=== PATIENT | male | born 1995 | race Caucasian/White ===

== ENCOUNTER 2020-05-12 17:59 | Emergency (ER) | payer MEDICAID, OTHER ==
[~2020-05-12] VITALS: Ht 175.3 cm; Wt 91.4 kg
[2020-05-12 18:14] VITALS: BP 106/62
== END 2020-05-12 19:21 | disposition home or self-care (01) ==
LOC: ED 19:15
DX: B35.3 Tinea pedis (principal); F17.200 Nicotine dependence, unspecified, uncomplicated
CPT/HCPCS: 99283

== ENCOUNTER 2020-05-18 20:08 | Emergency (ER) | payer SELFPAY ==
[~2020-05-18] VITALS: Ht 175.3 cm; Wt 94.8 kg
[2020-05-18 20:16] VITALS: BP 126/89
[2020-05-18] MEDS ORDERED: ACETAMINOPHEN 500 MG TABLET ONE (21:28)
[2020-05-18] MEDS ORDERED: ACETAMINOPHEN 500 MG TABLET PO ONE (21:30)
== END 2020-05-18 21:35 | disposition home or self-care (01) ==
LOC: ED 21:00
DX: K02.9 Dental caries, unspecified (principal); R00.0 Tachycardia, unspecified; G43.909 Migraine, unspecified, not intractable, without status migrainosus
CPT/HCPCS: 99283

== ENCOUNTER 2020-10-18 22:47 | Emergency (ER) | payer MEDICAID ==
[~2020-10-18] VITALS: Ht 167.6 cm; Wt 95.0 kg
[2020-10-18] MEDS ORDERED: KETAMINE 10 MG/ML, 20ML ONE (23:10)
--- NOTE | 2020-10-18 23:10 | NUR ---
PT TAKEN TO CT, DR FERRIS TO ACCOMPANY FOR SEDATION.
[2020-10-18] MEDS ORDERED: SODIUM CHLORIDE FLUSH 10ML SYR IVF ONE ×2 (23:30)
[2020-10-18] MEDS ORDERED: SODIUM CHLORIDE 0.9% 1,000ML IVBOLUS ONE (23:30)
[2020-10-18] MEDS ORDERED: KETAMINE 100 MG/ML, 5ML IV ONE (23:30)
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
[2020-10-18] MEDS ORDERED: OMNIPAQUE 350 MG/ML, 100ML BOTTLE ONE (23:47)
[2020-10-18 23:56] LABS: BASOPHILS % (AUTO) 1 % (0-1); EOSINOPHILS % (AUTO) 1 % (1-7); LYMPHOCYTES % (AUTO) 16 % (22-44); MEAN CORPUSCULAR HGB CONC 33.3 g/dL (33.2-36.2); MONOCYTES % (AUTO) 8 % (2-9); NEUTROPHILS % (AUTO) 75 % (42-75); PLATELET COUNT 191 x10^3/uL (130-400); RED BLOOD COUNT 4.57 x10^6/uL (4.38-5.82)
[2020-10-18 23:57] LABS: MD NO
[2020-10-19 00:01] LABS: ALANINE AMINOTRANSFERASE 40 U/L (12-78); ALBUMIN 3.5 g/dL (3.4-5.0); ANION GAP 8 mmol/L (5-15); CALCIUM 7.7 mg/dL (8.5-10.1); CHLORIDE 115 mmol/L (98-107); CREATININE 0.97 mg/dL (0.7-1.3)
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
[2020-10-19 00:05] LABS: ALKALINE PHOSPHATASE 69 U/L (45-117); BILIRUBIN,TOTAL 0.3 mg/dL (0.2-1.0); TOTAL PROTEIN 6.8 g/dL (6.4-8.2)
--- NOTE | 2020-10-19 00:40 | NUR ---
PT REPOSITIONING SELF ON GURNEY MAINTAINING AIRWAY, RESPONDS TO VERBAL STIMULI. PT PROVIDED BLANKETS AND IS RESTING COMFORTABLY
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
--- NOTE | 2020-10-19 02:29 | NUR ---
pt still agitated, yelling at this rn when talking with pt. pt still confused and unable to be safetly taken off of restraints
--- NOTE | 2020-10-19 02:54 | NUR ---
TASK RN. PT STILL AGGITATED, YELLING AT STAFF TO BE LET OUT OF RESTRAINTS AND THEN CRYING. PT STILL CONFUSED, STRONG ETOH ODOR ON BREATH. CONDOM CATH APPLIED AFTER MULITPLE ATTEMPTS WITH URINAL.
[2020-10-19] MEDS ORDERED: ZIPRASIDONE 20 MG INJ IM ONE ×2 (03:00→03:01)
--- NOTE | 2020-10-19 03:11 | NUR ---
PT SHOUTING AT STAFF AND NOT REDIRECTABLE AT THIS TIME, ERP UPDATED ORDER FOR [place] AT THIS TIME. PT MEDICATED AND REMAINS IN RESTRAINTS.
[2020-10-19] MEDS ORDERED: SODIUM CHLORIDE 0.9% 1,000ML IVBOLUS ONE (04:00)
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
[2020-10-19 05:23] VITALS: BP 131/65
--- NOTE | 2020-10-19 05:23 | NUR ---
PT TAKEN OFF OF RESTRAINTS, PT STOOD UP AND ABLE TO WALK TO RESTROOM WITHOUT ASSISTANCE, PT CALM AND COOPERATIVE AND ALERT AND OREINTED AT THIS TIME
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
== END 2020-10-19 06:12 | disposition home or self-care (01) ==
LOC: ED 23:17
DX: S01.511A Laceration without foreign body of lip, initial encounter (principal); S09.90XA Unspecified injury of head, initial encounter; G43.909 Migraine, unspecified, not intractable, without status migrainosus; M54.2 Cervicalgia; F10.129 Alcohol abuse with intoxication, unspecified; R00.0 Tachycardia, unspecified; Y90.0 Blood alcohol level of less than 20 mg/100 ml; Z88.1 Allergy status to other antibiotic agents; Y00.XXXA Assault by blunt object, initial encounter; Y93.89 Activity, other specified; Y92.410 Unspecified street and highway as the place of occurrence of the external cause; Y99.8 Other external cause status
CPT/HCPCS: 12052; 36415; 70450; 70486; 71260; 72125; 74177; 80053; 80320; 85025; 86705; 86706; 86803; 87340; 87806; 96360; 96372; 99285; J3486; J7030; Q9967; G0475; G0480

== ENCOUNTER 2020-10-24 00:08 | Emergency (ER) | payer MEDICAID ==
[~2020-10-24] VITALS: Ht 175.3 cm; Wt 105.0 kg
[2020-10-24 00:17] VITALS: BP 132/69
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
== END 2020-10-24 02:19 | disposition home or self-care (01) ==
LOC: ED 00:31
DX: F10.129 Alcohol abuse with intoxication, unspecified (principal); Z48.01 Encounter for change or removal of surgical wound dressing; G43.909 Migraine, unspecified, not intractable, without status migrainosus; Y90.0 Blood alcohol level of less than 20 mg/100 ml
CPT/HCPCS: 99281

== ENCOUNTER 2020-10-31 14:14 | Emergency (ER) | payer MEDICAID ==
[~2020-10-31] VITALS: Ht 177.8 cm; Wt 106.4 kg
[2020-10-31 14:22] VITALS: BP 148/75
--- NOTE | 2020-10-31 14:57 | NUR ---
cc of lower inside lip pain where suture is placed. area around wound is hard and pt describes sensation as "stabbing". pt also here for sutrure removal on upper right eye. pt has bilat healing black eyes with green color bruising noted. pt oriented and has pleasant affect.
== END 2020-10-31 15:38 | disposition home or self-care (01) ==
LOC: ED 15:04
DX: S01.511D Laceration without foreign body of lip, subsequent encounter (principal); F17.210 Nicotine dependence, cigarettes, uncomplicated; G43.909 Migraine, unspecified, not intractable, without status migrainosus; X58.XXXD Exposure to other specified factors, subsequent encounter
CPT/HCPCS: 99281; 99406